=== PATIENT | female | born 1970 | race Caucasian/White ===

== ENCOUNTER → 2016-06-17 | Outpatient (CLI) | payer OTHER ==
[~2016-06-17] MED LIST: NORCO 325 MG-51 TAB PO
== END ==
LOC: MC.RAD 10:51
DX: Z12.31 Encounter for screening mammogram for malignant neoplasm of breast (principal)

== ENCOUNTER → 2018-11-14 | Outpatient (CLI) | payer BC ==
[~2018-11-14] MED LIST changes: +DESYREL 50MG50 MG PO; +PROZAC40 MG PO
== END ==
LOC: MC.RAD 09:52
DX: Z12.31 Encounter for screening mammogram for malignant neoplasm of breast (principal)

== ENCOUNTER 2018-11-15 08:49 | Day surgery (SDC) | payer BC ==
[~2018-11-15] VITALS: Ht 160 cm; Wt 56.9 kg
[~2018-11-15 08:49] MED LIST changes: -DESYREL 50MG50 MG PO; -PROZAC40 MG PO
[2018-11-15] MEDS ORDERED: PROZAC40 MG PO (09:26)
[2018-11-15] MEDS ORDERED: DESYREL 50MG50 MG PO (09:27)
[2018-11-15 09:44] VITALS: BP 103/60; PULSE 59; TEMP 98.4
[2018-11-15 10:40] VITALS: BP 116/63; PULSE 68; TEMP 98
[2018-11-15 10:45] VITALS: BP 118/44; PULSE 55
[2018-11-15 11:00] VITALS: BP 110/62; PULSE 69
[2018-11-15 11:15] VITALS: BP 112/52; PULSE 55
--- NOTE | 2018-11-15 12:02 | NUR ---
PT RETURNED FROM ENDO PROCEDURE SUITE INTO BAY 4. PT ALERT, SLEEPY. PT AMBULATED X 1 ASSIST. TOLERATING ACTIVITY WELL. A/OX3, LUNGS CLEAR, HRR, BOWEL SOUNDS PRESENT. PT DENIES PAIN, NAUSEA OR DISCOMFORT. AT BEDSIDE, REQUESTED COFFEE WITH CREAMER AND BLUEBERRY MUFFIN, WILL CONT TO MONITOR.
--- NOTE | 2018-11-15 12:10 | NUR ---
PT TOLERATING FOOD AND FLUIDS WELL. DENIES PAIN, DISCOMFORT.
--- NOTE | 2018-11-15 12:14 | NUR ---
PT TOLERATING FOOD AND FLUIDS, DENIES NEEDS.
--- NOTE | 2018-11-15 12:17 | NUR ---
PT A/OX3, DENIES PAIN, NAUSEA OR DISCOMFORT. VSS. IV DC'D PER RIGHT AC, TOLERATED WELL. DISCHARGE INSTRUCTIONS GIVEN, PT AND VOICED UNDERSTANDING. PT DC'D OUT OF FACILITY PER WC INTO FAMILY VEHICLE.
== END 2018-11-15 11:50 | disposition home or self-care (01) ==
LOC: SDCO 08:49
DX: Z12.11 Encounter for screening for malignant neoplasm of colon (principal); D12.2 Benign neoplasm of ascending colon; D12.5 Benign neoplasm of sigmoid colon; K57.32 Diverticulitis of large intestine without perforation or abscess without bleeding; K62.89 Other specified diseases of anus and rectum; F32.9 Major depressive disorder, single episode, unspecified; M46.90 Unspecified inflammatory spondylopathy, site unspecified; Z87.891 Personal history of nicotine dependence; Z90.710 Acquired absence of both cervix and uterus
CPT/HCPCS: J2704

== ENCOUNTER → 2020-01-29 | Outpatient (CLI) | payer BC ==
[~2020-01-29] MED LIST changes: +DESYREL 50MG50 MG PO; +PROZAC40 MG PO
== END ==
LOC: MC.RAD 16:30
DX: Z12.31 Encounter for screening mammogram for malignant neoplasm of breast (principal); N63.21 Unspecified lump in the left breast, upper outer quadrant

== ENCOUNTER → 2020-02-08 | Outpatient (CLI) | payer BC | LOC: MC.RAD 08:51 | DX: R92.2 Inconclusive mammogram (principal) ==

== ENCOUNTER 2020-07-24 07:15 | Outpatient (RCR) | payer BC | END 2020-07-30 10:17 | disposition home or self-care (01) | LOC: PT.GENESIS 07:15 | DX: M54.2 Cervicalgia (principal); F32.2 Major depressive disorder, single episode, severe without psychotic features ==

== ENCOUNTER → 2021-01-01 | Outpatient (CLI) | payer BC | LOC: COL.RAD 12:21 | DX: E04.1 Nontoxic single thyroid nodule (principal) ==

== ENCOUNTER → 2021-09-22 | Outpatient (CLI) | payer BC | LOC: COL.RAD 08:28 | DX: R06.09 Other forms of dyspnea (principal) ==

== ENCOUNTER → 2021-09-29 | Outpatient (CLI) | payer BC | LOC: COL.RAD 07:08 | DX: R14.0 Abdominal distension (gaseous) (principal) ==